=== PATIENT | female | born 1965 | race Caucasian/White ===

== ENCOUNTER → 2016-08-11 | Outpatient (CLI) | payer OTHER ==
[~2016-08-11] VITALS: Ht 162.6 cm; Wt 52.2 kg
[~2016-08-11] MED LIST: LEXISCAN IV ONE
[2016-08-11 09:09] LABS: BASOPHIL # 0.1 10^3/uL (0.0-0.1); BASOPHIL % 1.7 % (0.0-0.2); EOSINOPHIL # 0.1 10^3/uL (0.0-0.2); HEMATOCRIT 44.1 % (36.0-46.0); HEMOGLOBIN 14.8 g/dL (12.0-15.0); LYMPHOCYTES # 1.3 10^3/uL (1.0-4.8); LYMPHOCYTES % 27.9 % (24.0-44.0); MEAN CELL HGB CONCENTRATION 33.6 g/dL (33-37); MEAN CORP VOLUME 95.5 fL (78-100); MEAN PLATELET VOLUME 10.2 fL (7.8-11.0); MONOCYTES # 0.7 10^3/uL (0.3-0.8); MONOCYTES % 13.9 % (5.0-12.0); NEUTROPHIL # 2.5 10^3/uL (1.8-7.7); NEUTROPHILS % 53.5 % (41.0-85.0); RED CELL DISTRIBUTION WIDTH 12.7 % (11.5-14.5); WHITE BLOOD CELL 4.7 10^3/uL (4.5-11.0)
[2016-08-11 09:51] LABS: CALCIUM 9.3 mg/dL (8.4-10.5); CARBON DIOXIDE 29.3 mmol/L (20.0-32)
--- NOTE | 2016-08-13 10:20 | STRESS ---
DATE OF SERVICE: 08/11/2016 STRESS TEST WITH NUCLEAR IMAGING STUDY INDICATIONS: A 51-year-old lady with chest pain, shortness of breath, diaphoresis, near syncope with dizziness. She has a family history of coronary artery disease, elected for stress test to further evaluate the symptoms, ruling out coronary artery disease, ischemia. The patient presented to [facility] in a fasting condition, signed a proper consent, risks and benefits were explained. All the questions were answered. Baseline blood pressure was 117/79, heart rate of 73. EKG showed sinus rhythm without ischemic changes. The patient was injected 0.4 mg of regadenoson followed by the stress dose of technetium sestamibi. One minute after infusion, blood pressure was 138/74, heart rate of 126. The patient developed some shortness of breath and nausea, resolved spontaneously. Recovery phase was uneventful. The patient had no further symptoms. Myocardial perfusion imaging study was performed using 10.69 mCi of technetium sestamibi resting dose and 32.8 mCi of stress dose. Myocardial perfusion imaging analysis showed the followin. Study quality was fair. 2. Attenuation artifacts were corrected with prone position being available. 3. SPECT perfusion images showed homogenous tracer distribution among the different myocardial segments, especially with prone position correction. No visible perfusion defect can be seen. 4. Gated function study showed normal wall motion and wall thickening. EF was 59%, stroke volume of 29 mL. IMPRESSION: 1. Nondiagnostic stress portion of Lexiscan. 2. No EKG changes of ischemia. 3. No arrhythmia. 4. Normal hemodynamic response. 5. Recovery phase was uneventful. 6. Myocardial perfusion imaging study was normal without any perfusion defects, ischemia or scarring. 7. Gated function study showed normal wall motion and wall thickening. No evidence of any wall motion abnormality. 8. Preserved EF around 59%. 9. This study qualifies for low risk for obstructive coronary artery disease by myocardial perfusion imaging criteria. Vidhi Astorga MD DR: APARNA/meseret JOB# [id number]
== END | disposition home or self-care (01) ==
LOC: NM 08:50
PROVIDERS: ATTEND Internal Medicine
DX: R07.9 Chest pain, unspecified (principal); R06.02 Shortness of breath; R55 Syncope and collapse
CPT/HCPCS: 36415; 78452; 80048; 80061; 83036; 84443; 85025; 93017; 93307; A9500; J2785

== ENCOUNTER 2016-09-10 00:21 | Day surgery (SDC) | payer OTHER ==
[2016-09-08 14:44] VITALS: BP 109/61
[2016-09-08 16:11] LABS: BASOPHIL % 0.7 % (0.0-0.2); EOSINOPHIL # 0.2 10^3/uL (0.0-0.2); HEMATOCRIT 41.8 % (36.0-46.0); HEMOGLOBIN 14.3 g/dL (12.0-15.0); LYMPHOCYTES # 1.6 10^3/uL (1.0-4.8); MEAN CELL HGB 32.6 pg (26-34); MEAN CELL HGB CONCENTRATION 34.2 g/dL (33-37); MEAN CORP VOLUME 95.2 fL (78-100); MONOCYTES # 0.7 10^3/uL (0.3-0.8); MONOCYTES % 11.4 % (5.0-12.0); NEUTROPHIL # 3.4 10^3/uL (1.8-7.7); NEUTROPHILS % 56.9 % (41.0-85.0); RED CELL DISTRIBUTION WIDTH 12.6 % (11.5-14.5)
[2016-09-08 16:37] LABS: CALCIUM 9.1 mg/dL (8.4-10.5); CARBON DIOXIDE 28.7 mmol/L (20.0-32)
--- NOTE | 2016-09-08 17:24 | DIREP ---
PROCEDURE:CHEST 2 VIEWS COMPARISON:None. INDICATIONS:PRE-OP HEART CATH FINDINGS: LUNGS/PLEURA:Emphysematous hyperinflation. VASCULATURE:Normal. Unremarkable pulmonary vasculature. CARDIAC:Normal. No cardiac silhouette abnormality or cardiomegaly. MEDIASTINUM:Normal. No visible mass or adenopathy. BONES:Moderate thoracolumbar scoliosis. OTHER:Negative. CONCLUSION:Emphysematous hyperinflation. Dictated by: Meng Jean M.D. on 09/08/2016 at 05:23 PM
[~2016-09-10] VITALS: Ht 162.6 cm; Wt 52.2 kg
[2016-09-10] VITALS (10 sets, daily range): BP systolic 90–135; BP diastolic 52–69
[~2016-09-10 00:21] MED LIST changes: +ESCI20TA10 PO; -LEXISCAN IV ONE; +MELA3TAB PO; +MV,C400T2 PO; +[UNRECOGNIZED DRUG - CODE] PO
[2016-09-10] MEDS ORDERED: HEPARIN ONE (06:05)
[2016-09-10] MEDS ORDERED: NS 1000ML 1,000 ML ONE (06:05)
[2016-09-10] MEDS ORDERED: SUBLIMAZE ONE (06:05)
[2016-09-10] MEDS ORDERED: CALAN ONE ×2 (06:05→08:41)
[2016-09-10] MEDS ORDERED: NITROGLYCERIN 25MG/D5W 250ML 250 ML IV ONE (06:06)
[2016-09-10] MEDS ORDERED: XYLOCAINE ONE (06:06)
[2016-09-10] MEDS ORDERED: VERSED ONE (06:06)
[2016-09-10] MEDS ORDERED: BENADRYL PO ONE ×2 (07:00→07:10)
[2016-09-10] MEDS ORDERED: NS 1000ML 1,000 ML IV SCH (09:13)
[2016-09-10] MEDS ORDERED: NORCO 5 MG PO PRN (09:30)
--- NOTE | 2016-09-11 08:26 | [facility] ---
PROCEDURES PERFORMED: 1. Left heart catheterization via right radial artery access. 2. Selective coronary arteriography, left and right. 3. Ventricular end-diastolic pressure measurement. 4. Left ventriculography. COMPLICATIONS: None. BLOOD LOSS: Minimal, less than 5 mL. INDICATION: The patient is a 51-year-old lady with history of smoking and hypertension. She does have a very strong family history of premature coronary artery disease in her father, brother, multiple cousins and multiple other first-degree relatives. Those relatives had a premature CAD requiring angioplasties and bypass procedures. This lady was examined for a new onset chest pain with shortness of breath. She passed all the nondiagnostic examination, but remained symptomatic. She has a very strong concern about any concomitant coronary artery disease, especially with her risk profile and family history. Therefore, the definitive diagnosis of the chest pain symptoms was requested and hence a coronary angiography was recommended. PROCEDURE IN DETAIL: The patient presented first to the clinical laboratory director in a fasting condition. Signed a proper consent. All risks and benefits were explained. All questions were answered. Lab results reviewed and allergies verified. Right wrist area was prepped and draped, and sterilized in the proper fashion, 1 % Xylocaine was used for local analgesia. A 6-Maori sheath was inserted in the right radial artery without difficulty. The patient received 4000 units of heparin for radial protection given intravenously. A 6-Maori [place] catheter was utilized to engage the left coronary system, 3DRC guiding catheter was utilized to engage the small nondominant RCA followed by advancing a pigtail catheter over the guidewire into the LV cavity for LVDP measurement and power injection LV gram in the [place] projection. No coronary obstructive disease noted in the left dominant system with normal EF, therefore case concluded with removal of catheter over the wire and application of TR band at the right radial artery access site for hemostasis. The patient tolerated the procedure well and left the clinical laboratory director in stable condition without any complications. HEMODYNAMICS: 1. Opening pressure of 120/67, mean of 89 mmHg of central aortic pressure. 2. Left ventricular end-diastolic pressure measurement was around 10 mmHg. 3. LV gram showed an EF of 60%. No wall motion abnormality noted. 4. No gradient across the aortic valve and pullback of the pigtail catheter. 5. The ascending aorta was normal in size without apparent disease. ANGIOGRAPHIC FINDINGS: 1. The left main is a large-size vessel, short, free of disease and free of any calcification bifurcating to the descending artery and circumflex artery. 2. ____ artery is normal size vessel, tortuous distally, free of disease. The first diagonal branch is large size tortuous vessel, free of disease. 3. Small tortuous vessel, multiple small septal branches were seen. The LAD territory was free of any obstructive disease. 4. The circumflex artery is a large dominant vessel, free of disease, terminates as a medium tortuous of the left PDA giving rise to multiple small-to -medium size tortuous obtuse marginal branches. No obstructive lesion in the circumflex artery territory. 5. The right coronary artery is small nondominant vessel and free of disease. IMPRESSION: 1. No angiographic evidence of any obstructive coronary artery region. 2. Dominant left circumflex artery free of disease. 3. Small nondominant RCA. 4. Normal left main free of disease. 5. Preserved EF of 60%. 6. Normal LVEDP. 7. The procedure was well tolerated without complications. RECOMMENDATIONS: 1. TR band protocol. 2. Risk factor modification and primary prevention of coronary artery disease. 3. Outpatient followup after the patient meets the surgical criteria for same day discharge. Vidhi Astorga MD,[facility] TD: 09/10/2016 12:03 EUSEBIO
== END 2016-09-10 11:30 | disposition home or self-care (01) | DRG 303 ==
LOC: SDC 00:21
PROVIDERS: ATTEND Internal Medicine
DX: I25.119 Atherosclerotic heart disease of native coronary artery with unspecified angina pectoris (principal); E78.2 Mixed hyperlipidemia; I10 Essential (primary) hypertension; F41.9 Anxiety disorder, unspecified; R06.02 Shortness of breath; R55 Syncope and collapse; Z82.49 Family history of ischemic heart disease and other diseases of the circulatory system; Z90.710 Acquired absence of both cervix and uterus; Z98.890 Other specified postprocedural states; Z80.3 Family history of malignant neoplasm of breast; Z83.3 Family history of diabetes mellitus; F17.210 Nicotine dependence, cigarettes, uncomplicated; F15.90 Other stimulant use, unspecified, uncomplicated; Z79.899 Other long term (current) drug therapy
CPT/HCPCS: 36415; 71020; 80048; 85025; 85610; 93458; 99152; C1769; C1887 ×2; C1894; J1644 ×2; J2250; J3010; J3490 ×3; J7030; Q0163; Q9967 ×2

== ENCOUNTER → 2023-06-02 | Outpatient (CLI) | payer BC ==
[~2023-06-02] MED LIST changes: -MELA3TAB PO; +MELA3TAB31 PO; +[UNRECOGNIZED DRUG - CODE] PO; -[UNRECOGNIZED DRUG - CODE] PO
== END | disposition home or self-care (01) ==
LOC: RAD 14:18
PROVIDERS: ATTEND Nurse Practitioner Family
DX: I87.8 Other specified disorders of veins (principal); M25.561 Pain in right knee; M25.551 Pain in right hip
CPT/HCPCS: 73502; 73560